=== PATIENT | male | born 1965 | race Caucasian/White ===

== ENCOUNTER 2021-06-11 13:08 | Emergency (ER) | payer OTHER | END 2021-06-11 14:09 | disposition home or self-care (01) | LOC: CSHERS 13:08 | DX: J01.90 Acute sinusitis, unspecified (principal); I10 Essential (primary) hypertension; E78.5 Hyperlipidemia, unspecified; F17.220 Nicotine dependence, chewing tobacco, uncomplicated | CPT/HCPCS: 71045 ==